=== PATIENT | female | born 1950 | race Caucasian/White ===

== ENCOUNTER → 2017-01-22 | Outpatient (CLI) | payer BC ==
--- NOTE | 2017-01-22 16:08 | RADRPT ---
EXAM DATE/TIME: 01/22/2017 00:00 [place] COMPARISON: No previous studies available for comparison. INDICATIONS : Peripheral vascular disease TECHNIQUE: Five-station segmental examination of the lower extremities was performed pre and post extercise. Pulsed-cuff waveform tracings and pressures were recorded. Ankle-brachial indices and toe-brachial indices were calculated. PRESSURES (mmHg): Pre Exercise: Brachial (arm): Right 106 Left 120 Lower Thigh: Right 145 Left 136 Calf: Right 121 Left 137 Ankle: Right 135 Left 120 JOCELYNN: Right 1.13 Left 1.00 TBI: Right 0.82 Left 0.88 Post Exercise: Brachial (arm): Left 129 Not applicable Ankle: Right 133 Left 122 PULSED CUFF WAVEFORMS: Demonstrate normal amplitude bilaterally. CONCLUSION: 1. ABIs and TBIs within the normal range. Chato Burgos Jr., MD on January 22, 2017 at 14:21 Board Certified Radiologist. This report was verified electronically.
== END ==
LOC: HCAV 11:14
DX: I73.9 Peripheral vascular disease, unspecified (principal)
CPT/HCPCS: 93924